=== PATIENT | female | born 1980 | race Caucasian/White ===

== ENCOUNTER 2022-05-26 05:55 | Emergency (ER) | payer BC, SELFPAY ==
[2022-05-26 06:03] VITALS: BP 116/68; PULSE 88; RESP 18; TEMP 36.4; O2SAT 100; BMI 27.3
[2022-05-26 06:38] VITALS: BP 111/78; PULSE 80; RESP 16; O2SAT 98
--- NOTE | 2022-05-26 06:42 | XR_ITS ---
WS: [id number] Exam: XR knee LT 3V* [id number] Date/Time of Exam: 05/26/2022 7:00 AM Reason For Exam: pain No acute fracture or dislocation. Signs of previous ACL reconstruction. Mild degenerative change of t he lateral joint compartment. No joint effusion. XR/XR knee LT 3V* [id number] IMPRESSION: 1. Mild degenerative changes. No fracture or joint effusion. 2. Signs of the ACL reconstruction.
--- NOTE | 2022-05-26 06:48 | W.ED.EXTPRO ---
HPI - Extremity Problem General: Chief complaint: Extremity Injury, Lower Stated complaint: Left leg in pain Time Seen by Provider: 05/26/22 06:29 Source: patient Mode of arrival: ambulatory History of Present Illness: 41-year-old female presents emergency room complaining of left knee pain. Patient recently started working had not been held a job for 3 years she has been on her feet quite a bit states she is going around a corner and had sudden pain in her knee she previously had ACL reconstruction in the left knee. No specific trauma other than being up on her feet. No swelling in the leg or calf she does feel like there is some swelling around the left knee joint itself. She taken some diuw-zug-wrosffe medications for with minimal relief. MD Complaint: joint swelling and joint pain Onset (ago): day(s) Pain Consistency: constant Location: left and knee Quality: sharp Radiation: none Relieving factors: rest Exacerbating factors: range of motion, weight bearing, walking and palpation Associated symptoms: Deny arthralgias, chest pain, fever(s), myalgias, rash or short of breath Review of Systems Const: Denies: fever(s), chills, fatigue or malaise ENMT: Denies: throat pain, ear or mastoid pain, nasal discharge or nasal congestion Card: Denies: chest pain Resp: Denies: dyspnea, productive cough or non-productive cough GI: Denies: abdominal pain, nausea, vomiting, hematemesis, coffee ground emesis, diarrhea, constipation, bloating, hematochezia or melena : Denies: flank pain, difficulty voiding, dysuria, urinary frequency or urinary urgency Musc: Reports: joint pain and joint swelling Skin/Breast: Denies: rash, pruritus or erythema PFSH ED PFSH: Surgical History (Updated 05/26/22 @ 07:23 by Dvae Ingram DO) History of repair of anterior cruciate ligament of left knee Social History (Updated 05/26/22 @ 06:51 by Dave Ingram DO) Smoking and tobacco status: current every day smoker Physical Exam Const: COMMON NORMALS: no acute distress GENERAL APPEARANCE: cooperative and comfortable ORIENTATION/CONSCIOUSNESS: Yes awake, Yes oriented to person, Yes oriented to place and Yes oriented to time HENMT: COMMON NORMALS: normocephalic, atraumatic and hearing grossly normal bilaterally HEAD & SCALP: normocephalic and atraumatic Resp: COMMON NORMALS: normal respiratory effort, No retractions, No use of accessory muscles and clear to auscultation bilaterally AUSCULTATION: clear to auscultation bilaterally Cardio: COMMON NORMALS: regular rate, regular rhythm and No murmurs present (Cardio) RATE: regular rate RHYTHM: regular rhythm GI: COMMON NORMALS: Soft to palpation and No hepatosplenomegaly present AUSCULTATION: Yes normoactive bowel sounds PALPATION: Yes Soft to palpation, No Tenderness to palpation present (GI), No Guarding due to palpation present (GI) and Yes No hepatosplenomegaly present Extremity: LEFT LOWER EXTREMITY: Yes knee joint (Moderate joint effusion drawer and Devan's intact pain with flexion) Neuro: SENSORIUM/ORIENTATION: Yes oriented to person, Yes oriented to place and Yes oriented to time Skin: COMMON NORMALS: no rashes or lesions noted GENERAL SKIN EXAM: no rashes or lesions noted Course Vital Signs: Vital signs: Vital Signs Temperature 97.5 F L 05/26/22 06:03 Pulse Rate 93 05/26/22 07:40 Respiratory Rate 16 05/26/22 06:38 Blood Pressure 125/88 05/26/22 07:40 Pulse Oximetry 99 05/26/22 07:40 Oxygen Delivery Me thod 05/26/22 06:38 MDM - Extremity (Nontraumatic) Medical Decision Making No acute findings on the x-ray of the knee. Nonweightbearing with crutches refer back to Ortho. Diclofenac as needed for pain Medical Records I reviewed the patient's medical records. Lab Data I reviewed the patient's lab results. Radiology Impressions Knee X-Ray 05/26/22 06:42 IMPRESSION: 1. Mild degenerative changes. No fracture or joint effusion. 2. Signs of the ACL reconstruction. Discharge Plan Discharge Patient Disposition: Home Clinical Impression: Acute pain of left knee, History of repair of anterior cruciate ligament of left knee Prescriptions: New prednisone 20 mg tablet 20 mg PO TID Qty: 15 0RF Rx Instructions: 1 p.o. 3 times daily x3 days, 1 p.o. twice daily x2 days, 1 p.o. daily x2 days diclofenac sodium 75 mg tablet,delayed release (DR/EC) 75 mg PO Q12H PRN (Reason: pain) Qty: 20 0RF Discharge Orders: Discharge ED (Routine); Ordered 05/26/22 Ordered By: Dave Ingram Referrals: Reji Oates MD [Primary Care Provider] - Discharge Diet: Usual diet Discharge Activity: Resume usual activity Patient Instructions: Opioid Safety, Pain Management Activity Restrictions/Additional Instructions: partnership marketing manager will make arrangements for her to follow-up with orthopedics. Toe-touch weightbearing on the left leg, crutches until released by Ortho. Stand Alone Forms: Work/School Release Coding Level of Care Code ED Billet Checker for Chg Fwd Exam Detailed
[2022-05-26 07:40] VITALS: BP 125/88; PULSE 93; O2SAT 99
--- NOTE | 2022-05-26 07:51 | PC.SOCIAL ---
Addendum entered by Ewa Topete 07/02/22 13:37: flower shop manager received the following message from the ortho clinic regarding follow up appointment: attempt made to contact patient, left vm and mailed letter to contact clinic to schedule w/ dr maria Original Note: Ortho Referral Consult received for ortho referral. Referral sent to [facility] Orthopedics/Podiatry. Clinic will contact patient with appt. date/time.
== END 2022-05-26 07:40 | disposition home or self-care (01) ==
PROVIDERS: Emergency Provider Family Medicine; PCP Family Medicine
DX: M25.562 Pain in left knee (principal)
CPT/HCPCS: 73562; 99283; E0114

== ENCOUNTER 2024-04-19 09:42 | Emergency (ER) | payer OTHER, SELFPAY ==
--- NOTE | 2024-04-19 09:42 | ECG_ITS ---
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
[2024-04-19 09:43] VITALS: BP 120/76; PULSE 71; RESP 22; O2SAT 100
--- NOTE | 2024-04-19 09:56 | W.ED.SEIZURE ---
HPI - Seizure General: Chief Complaint: Seizure Stated Complaint: seizure Time Seen by Provider: 04/19/24 09:45 History of Present Illness: HPI Narrative: 43-year-old female presents emergency room via EMS. She reports that she was at work she was breathing fast and then passed out. EMS reports bystanders stated she had a seizure that lasted 3 to 4 minutes and then was unconscious for about the same length of time afterwards. She been working in [employer] that her [employer]. They also reported she hit her head when she fell. She states she has had seizures in the past but this felt different she was breathing rapidly before it happened and kind of could tell something was coming on. She relates it more to her anxiety. She is not on any seizure medications at this time. She states the anxiety triggers her seizures. Associated symptoms: Deny chest pain, chills or fever(s) Related Data Home Medications Medication Instructions Recorded Confirmed alprazolam 2 mg tablet 2 mg PO TID 04/19/24 04/19/24 Previous Rx's Medication Instructions Recorded potassium chloride 20 mEq 20 meq PO DAILY #5 tabs 04/19/24 tablet,extended release Review of Systems Const: Denies: fever(s) or chills Card: Denies: chest pain Resp: Denies: dyspnea GI: Denies: abdominal pain : Denies: dysuria, urinary frequency or urinary urgency Musc: Denies: neck pain or back pain Skin/Breast: Denies: rash PFS ED PFSH: Surgical History (Updated 05/26/22 @ 07:23 by Dave Ingram DO) History of repair of anterior cruciate ligament of left knee Social History (Updated 05/26/22 @ 06:51 by Dave Ingram DO) Smoking and tobacco/nicotine status: current every day tobacco/nicotine user Physical Exam Const: COMMON NORMALS: no acute distress GENERAL APPEARANCE: cooperative and comfortable ORIENTATION/CONSCIOUSNESS: Yes awake, Yes oriented to person, Yes oriented to place and Yes oriented to time HENMT: COMMON NORMALS: normocephalic, atraumatic and hearing grossly normal bilaterally HEAD & SCALP: normocephalic and atraumatic Resp: COMMON NORMALS: normal respiratory effort, No retractions, No use of accessory muscles and clear to auscultation bilaterally AUSCULTATION: clear to auscultation bilaterally Cardio: COMMON NORMALS: regular rate, regular rhythm and No murmurs present (Cardio) RATE: regular rate RHYTHM: regular rhythm GI: COMMON NORMALS: Soft to palpation and No hepatosplenomegaly present AUSCULTATION: Yes normoactive bowel sounds PALPATION: Yes Soft to palpation, No Tenderness to palpation present (GI), No Guarding due to palpation present (GI) and Yes No hepatosplenomegaly present Extremity: COMMON NORMALS: normal to inspection, capillary refill normal, no clubbing, cyanosis or edema, no calf tenderness and no pedal edema Neuro: SENSORIUM/ORIENTATION: Yes oriented to person, Yes oriented to place and Yes oriented to time Skin: COMMON NORMALS: no rashes or lesions noted GENERAL SKIN EXAM: no rashes or lesions noted Course Vital Signs: Vital signs: Vital Signs Temperature 97.0 F L 04/19/24 10:05 Pulse Rate 78 04/19/24 13:08 Respiratory Rate 22 H 04/19/24 09:43 Blood Pressure 129/77 04/19/24 13:08 Pulse Oximetry 100 04/19/24 13:08 MDM - Seizure MDM Narrative Medical decision making narrative: Patient is hypokalemic this corrected with potassium supplement will discharge home potassium supplements take for the next several days should follow-up with primary care doctor potassium rechecked. Will set her up for an outpatient EGD and follow-up with neurology. Given her descriptions today she was rapidly breathing for this event happened I think if she hyperventilated and syncopized due to hyperventilation. She feels that is also the case. Return if she has further problems. She did states she has had seizures in the past but is not had any for several years and this felt different. Lab Data 04/19/24 10:06 04/19/24 10:06 Labs: Radiology Impressions Head CT 04/19/24 09:57 IMPRESSION: 1. No evidence of intracranial hemorrhage or mass effect. 2. No acute intracranial findings. Cervical Spine X-Ray 04/19/24 11:53 IMPRESSION: No acute abnormality. Knee X-Ray 04/19/24 11:53 IMPRESSION: Postoperative right knee with mild changes of osteoarthritis. No acute abnormality. Laboratory Results WBC 10.39 10^3/uL (3.29-11.43) 04/19/24 10:06 RBC 4.82 10^6/uL (3.85-5.65) 04/19/24 10:06 Hgb 14.20 g/dL (11.27-16.99) 04/19/24 10:06 Hct 43.2 % (36-47) 04/19/24 10:06 MCV 89.6 fl (85-98) 04/19/24 10:06 MCH 29.5 pg (27-33) 04/19/24 10:06 MCHC 32.9 g/dL (30-55) 04/19/24 10:06 RDW 13.1 % (12.1-15.1) 04/19/24 10:06 Plt Count 246 10^3/cmm (157-399) 04/19/24 10:06 MPV 11.9 fL (7.4-10.4) H 04/19/24 10:06 Neut % (Auto) 83.2 % 04/19/24 10:06 Lymph % (Auto) 10.1 % 04/19/24 10:06 [place] % (Auto) 5.8 % 04/19/24 10:06 Eos % (Auto) 0.1 % 04/19/24 10:06 Baso % (Auto) 0.3 % 04/19/24 10:06 Neut # (Auto) 8.65 10^3/uL (1.8-7.7) H 04/19/24 10:06 Lymph # (Auto) 1.1 10^3/uL (0.8-4.8) 04/19/24 10:06 [place] # (Auto) 0.6 10^3/uL (0.2-0.9) 04/19/24 10:06 Eos # (Auto) 0.0 10^3/uL (0.0-0.8) 04/19/24 10:06 Baso # (Auto) 0.0 10^3/uL (0.0-0.1) 04/19/24 10:06 Nucleated RBC % (auto) 0 % 04/19/24 10:06 Nucleated RBCs # 0.0 /100WBC 04/19/24 10:06 Specimen Type Arterial 04/19/24 10:22 Sample Site Radial, right 04/19/24 10:22 ABG pH 7.44 (7.35-7.45) 04/19/24 10:22 ABG pCO2 36.2 mmHg (35-45) 04/19/24 10:22 ABG pO2 90.0 mmHg (80.0-100.0) 04/19/24 10:22 ABG PO2/FiO2 Ratio 428 04/19/24 10:22 ABG HCO3 24.8 mmol/L (22-26) 04/19/24 10:22 ABG O2 Saturation 98.1 04/19/24 10:22 ABG Base Excess 1.0 mmol/L (-2.0-2.0) 04/19/24 10:22 Reji Test Pos 04/19/24 10:22 A-a O2 Gradient 1.9 mmHg (5-10) L 04/19/24 10:22 Hematocrit 44.7 % (37-47) 04/19/24 10:22 Hgb O2 Saturation 97.2 % (95-100) 04/19/24 10:22 Carboxyhemoglobin 0.8 %THgb (0.4-20.1) 04/19/24 10:22 Methemoglobin 0.1 % (0.4-1.5) L 04/19/24 10:22 Total Hemoglobin 14.6 g/dL (12-16) 04/19/24 10:22 Sodium 140.0 mmol/L (131-143) 04/19/24 10:22 Potassium 2.9 mmol/L (3.5-5.0) L 04/19/24 10:22 Glucose 125.0 mg/dL (70-115) H 04/19/24 10:22 Ionized Calcium 1.2 mmol/L (1.1-1.4) 04/19/24 10:22 O2 Delivery Device Room air 04/19/24 10:22 FiO2 21.0 % 04/19/24 10:22 Cushion Cover Inspector ID [id number] 04/19/24 10:22 Sodium 136 mmol/L (136-145) 04/19/24 10:06 Potassium 2.7 mmol/L (3.5-5.1) L* 04/19/24 10:06 Chloride 97 mmol/L (98-107) L 04/19/24 10:06 Carbon Dioxide 23 mmol/L (22-29) 04/19/24 10:06 Anion Gap 18.7 (5-19) 04/19/24 10:06 BUN 13 mg/dL (6-20) 04/19/24 10:06 Creatinine 0.6 mg/dL (0.5-0.9) 04/19/24 10:06 GFR Calculation 109.6 mL/min (90-130) 04/19/24 10:06 Glucose 148 mg/dL (65-115) H 04/19/24 10:06 Calculated Osmolality 285 mOsm/kg (285-295) 04/19/24 10:06 Calcium 9.1 mg/dL (8.5-10.5) 04/19/24 10:06 Magnesium 2.1 mg/dL (1.7-2.3) 04/19/24 10:06 Total Bilirubin 0.7 mg/dL (0.15-1.2) 04/19/24 10:06 AST 12 U/L (0-32) 04/19/24 10:06 ALT 15 U/L (0-33) 04/19/24 10:06 Alkaline Phosphatase 76 U/L (35-105) 04/19/24 10:06 Total Protein 7.6 g/dL (6.6-8.7) 04/19/24 10:06 Albumin 4.7 g/dL (3.5-5.2) 04/19/24 10:06 Globulin 2.9 g/dL (1.3-4.6) 04/19/24 10:06 HCG, Qual Negative (Negative) 04/19/24 10:06 Urine Color Yellow (Yellow) 04/19/24 10:04 Urine Appearance Cloudy (CLEAR) A 04/19/24 10:04 Urine pH 6.0 (5-7) 04/19/24 10:04 Ur Specific Elmo 1.045 (1.005-1.030) H 04/19/24 10:04 Urine Protein Trace (Negative) A 04/19/24 10:04 Urine Glucose (UA) 3+ (Normal) H 04/19/24 10:04 Urine Ketones 2+ (Negative) H 04/19/24 10:04 Urine Blood Negative (Negative) 04/19/24 10:04 Urine Nitrate Negative (Negative) 04/19/24 10:04 Urine Bilirubin Negative (Negative) 04/19/24 10:04 Urine Urobilinogen 1.0 mg/dL (Negative) 04/19/24 10:04 Ur Leukocyte Esterase Negative (Negative) 04/19/24 10:04 Urine RBC 0-2 /hpf (0-2) 04/19/24 10:04 Urine WBC 6-10 /hpf (0-5) 04/19/24 10:04 Ur Squamous Epith Cells 21-50 /hpf (0-5) 04/19/24 10:04 Amorphous Sediment Not Reportable 04/19/24 10:04 Urine Bacteria None seen /hpf (NONE) 04/19/24 10:04 Hyaline Casts 4.95 /lpf 04/19/24 10:04 Urine Opiates Screen Negative ng/mL (Negative) 04/19/24 10:04 Ur Barbiturates Screen Negative ng/mL (Negative) 04/19/24 10:04 Ur Phencyclidine Scrn Negative ng/mL (Negative) 04/19/24 10:04 Ur Amphetamines Screen Negative ng/mL (Negative) 04/19/24 10:04 U Benzodiazepines Scrn Positive ng/mL (Negative) H 04/19/24 10:04 Urine Cocaine Screen Negative ng/mL (Negative) 04/19/24 10:04 U Marijuana (THC) Screen Positive ng/mL (Negative) H 04/19/24 10:04 All radiology interpretation(s) finalized by discharge Discharge Plan Discharge Patient Disposition: Home Clinical Impression: Generalized seizure, Anxiety, Hyperkalemia Condition: Stable Prescriptions: New potassium chloride 20 mEq tablet extended release 20 meq PO DAILY Qty: 5 0RF No Action alprazolam 2 mg tablet 2 mg PO TID Discharge Orders: Discharge ED (Routine); Ordered 04/19/24 Ordered By: Dave Ingram Referrals: Reji Oates MD [Occupational Therapist] - Discharge Diet: Usual diet Discharge Activity: Resume usual activity Patient Instructions: Opioid Safety, Pain Management Activity Restrictions/Additional Instructions: Thank you for choosing [facility] for your healthcare needs today. It is very important that you follow up as instructed or that you return to the Emergency Department should you have concerns or if your condition changes or worsens in any way. You are seen in the emergency room after an episode of a possible seizure. From your description it sounds like you may have hyperventilated and had a syncopal episode as result of that however we cannot be entirely certain. X-rays of the areas you hurt including her neck and right knee and head were all negative for acute injury. We did also have an incidental finding of low potassium you were given a potassium supplement for that. You will be discharged home we recommend that you follow-up with an outpatient EEG and consultation with neurology which case management will arrange for. Finally would give you 3 days of potassium supplement and you should recheck your potassium next week with your primary care doctor. Coding Level of Care Code ED Gauge Inspector for Aarti Oro
--- NOTE | 2024-04-19 09:57 | CT_ITS ---
WS: [id number] CT HEAD TECHNIQUE: Noncontrast CT of the head obtained from the skullbase to the vertex. CLINICAL INFORMATION: Trauma COMPARISON: None. DLP: 2092.[address] scans at [facility] use at least one of these dose optimization techniques: automated e xposure control; mA and/or kV adjustment per patient size (includes targeted exams where dose is matc hed to clinical indication); or iterative reconstruction. FINDINGS: No evidence of intracranial hemorrhage or mass effect. Ventricular system and basal cisterns are pichardo nt. No extra-axial fluid collections. No evidence of mass or mass effect. Normal lombardo-white differen tiation. Incidental slight cerebellar tonsillar ectopia. Paranasal sinuses and mastoid air cells are well aerated. CT/CT head wo con* [id number] IMPRESSION: 1. No evidence of intracranial hemorrhage or mass effect. 2. No acute intracranial findings.
[2024-04-19 10:05] VITALS: TEMP 36.1
[2024-04-19 10:19] LABS: Bilirubin Urine Negative (Negative); Blood Urine Negative (Negative); Glucose Urine UA 3+ (Normal); Ketones Urine 2+ (Negative); Leukocyte Esterase Urine Negative (Negative); Nitrate Urine Negative (Negative); Protein Urine Trace (Negative); Urine Appearance Cloudy (CLEAR); Urine Color Yellow (Yellow)
[2024-04-19 10:20] LABS: Amphetamines Screen Urine Negative (Negative); Barbiturates Screen Urine Negative (Negative); Benzodiazepines Screen Urine Positive (Negative); Cocaine Screen Urine Negative (Negative); Opiate Screen Urine Negative (Negative); PCP Screen Urine Negative (Negative); THC Screen Urine Positive (Negative)
[2024-04-19 10:24] LABS: Add Urine Microscopic? YES; Bacteria Urine None Seen /hpf; Hyaline Casts Urine 4.95 /lpf; RBC Urine 0-2 /hpf (0-2); Squamous Epithelial Cell Urine 21-50 /hpf (0-5)
[2024-04-19 10:27] LABS: Basophils % 0.3 %; Eosinophils % 0.1 %; Hematocrit 43.2 % (36-47); Lymphocytes # 1.1 10^3/uL (0.8-4.8); Lymphocytes % 10.1 %; Mean Corpuscular HGB Conc 32.9 g/dL (30-55); Mean Corpuscular Hemoglobin 29.5 pg (27-33); Mean Corpuscular Volume 89.6 fl (85-98); Mean Platelet Volume 11.9 fL (7.4-10.4); Monocytes # 0.6 10^3/uL (0.2-0.9); Monocytes % 5.8 %; Neutrophils # 8.65 10^3/uL (1.8-7.7); Neutrophils % 83.2 %; Nucleated Red Blood Cells % 0 %; Platelet Count 246 10^3/cmm (157-399); Red Blood Count 4.82 10^6/uL (3.85-5.65); Red Cell Distribution Width 13.1 % (12.1-15.1); White Blood Count 10.39 10^3/uL (3.29-11.43)
[2024-04-19 10:31] LABS: Specific Gravity, Urine 1.045 (1.005-1.030)
[2024-04-19 10:32] LABS: Add Urine Culture? No
[2024-04-19 10:36] LABS: ABG PCO2 36.2 mmHg (35-45); ABG PH Result 7.44 (7.35-7.45); Alveolar-Arterial Oxygen Gradi 1.9 mmHg (5-10); Arterial Blood Gas Hematocrit 44.7 % (37-47); Blood Gas Allen Test Pos; Blood Gas Operator Identificat glc; Blood Gas Sample Site Radial, right; Blood Gas Sample Type Arterial; Carboxyhemoglobin 0.8 %THgb (0.4-20.1); HCO3 ABG 24.8 mmol/L (22-26); HGB O2 Sat 97.2 % (95-100); Ionized Calcium Level - ABG 1.2 mmol/L (1.1-1.4); Methemoglobin 0.1 % (0.4-1.5); Oxygen Device ROOM AIR; Oxygen Saturation ABG 98.1; PO2 FiO2 Ratio Arterial Blood 428; Potassium Level - ABG 2.9 mmol/L (3.5-5.0); Total Hemoglobin 14.6 g/dL (12-16)
[2024-04-19 10:50] LABS: Alanine Aminotransferase 15 U/L (0-33); Albumin Level 4.7 g/dL (3.5-5.2); Alkaline Phosphatase 76 U/L (35-105); Anion Gap 18.7 (5-19); Aspartate Amino Transferase 12 U/L (0-32); Blood Urea Nitrogen 13 mg/dL (6-20); Calcium 9.1 mg/dL (8.5-10.5); Carbon Dioxide 23 mmol/L (22-29); Chloride 97 mmol/L (98-107); Creatinine Clr Calc Pharmacy 129.9056; Globulin 2.9 g/dL (1.3-4.6); Glomerular Filtration Rate 109.6 mL/min (90-130); Glucose 148 mg/dL (65-115); Magnesium 2.1 mg/dL (1.7-2.3); Osmolality Calculated 285 mOsm/kg (285-295); Sodium 136 mmol/L (136-145); Total Bilirubin 0.7 mg/dL (0.15-1.2); Total Protein 7.6 g/dL (6.6-8.7)
[2024-04-19 10:58] LABS: Potassium 2.7 mmol/L (3.5-5.1)
[2024-04-19 11:04] LABS: HCG, Serum Qual Negative (Negative)
[2024-04-19 11:06] VITALS: BP 116/82; BP 125/88; BP 129/77; PULSE 78; PULSE 87; PULSE 90
[2024-04-19] MEDS: potassium chloride oral liq 20 mEq/15 mL UDC 40 MEQ PO (11:13)
[2024-04-19] MEDS: sodium chloride 0.9% 1,000 ML 999 ML IV (11:14)
--- NOTE | 2024-04-19 11:53 | XR_ITS ---
WS: [id number] XR knee RT 3V* [id number] REASON FOR EXAM: trauma FINDINGS: Previous ACL repair. No acute fracture. Mild narrowing of the medial knee joint space with mild subchondral sclerosis and osteophytosis. Mild narrowing of the lateral knee joint space with mild subchondral sclerosis and osteophytosis. Patellofemoral joint space is intact with mild subchondral sclerosis and osteophytosis of the patella . XR/XR knee RT 3V* [id number] IMPRESSION: Postoperative right knee with mild changes of osteoarthritis. No acute abnormal ity.
--- NOTE | 2024-04-19 11:53 | XR_ITS ---
WS: [id number] XR cervical spine 3V* [id number] REASON FOR EXAM: trauma FINDINGS: Normal cervical spine curvatures. Normal odontoid and vertebral bodies. Mild disc space narrowing with anterior osteophytosis C5-C6. Normal facet joint alignment. XR/XR cervical spine 3V* [id number] IMPRESSION: No acute abnormality.
[2024-04-19 13:07] VITALS: BP 129/77; PULSE 77; O2SAT 100
[2024-04-19 13:08] VITALS: BP 129/77; PULSE 78; O2SAT 100
--- NOTE | 2024-04-20 08:41 | DCPLANNER ---
Message sent to Neurology for EEG and Follow up -Seizures
== END 2024-04-19 13:10 | disposition home or self-care (01) ==
PROVIDERS: Emergency Provider Family Medicine; PCP Nurse Practitioner Family
DX: G40.89 Other seizures (principal); F41.9 Anxiety disorder, unspecified; E87.5 Hyperkalemia; Z72.0 Tobacco use
CPT/HCPCS: 36415; 36600; 70450; 72040; 73562; 80051; 80053; 80306; 81001; 82330; 82805; 83735; 84703; 85025; 93005; 99285; J7030